=== PATIENT | female | born 1980 | race African-American/Black ===

== ENCOUNTER 2016-08-01 10:35 | Emergency (ER) | payer OTHER ==
[~2016-08-01] VITALS: Ht 167.6 cm; Wt 70.3 kg
[~2016-08-01 10:35] MED LIST: ALBUTEROL SULF8.5 GM INH; AZITHROMYCIN250 MG ORAL; BENTYL10 MG ORAL; HYDROCODON-ACE1 EA15 ORAL; IBUPROFEN600 MG ORAL; IBUPROFEN800 MG ORAL; LEVOTHYROXINE75 MCG ORAL; MACROBID100 MG ORAL; NITROFURANTOIN100 M2 ORAL; PREDNISONE20 MG ORAL; ZOFRAN ODT4 MG ORAL
[2016-08-01] MEDS ORDERED: SPIRONOLACTONE50 MG ORAL (10:45)
--- NOTE | 2016-08-01 11:09 | Emergency Room Report ---
History of Present Illness General Chief Complaint: Abdominal Pain Source: Patient Present Illness HPI Patient presents with complaints of left lower abdominal suprapubic discomfort She reports that she has had this pain off and on for several months She has had a CAT scan here and also states that she has had several ultrasounds performed She is supposed to be seeing a specialist for GI and OB for consideration of further workup The pain however last night had increased 8/10 And patient presents for pain relief denies any vomiting or diarrhea denies any recent travel denies any fevers or chills Allergies: Coded Allergies: No Known Allergies (Unverified , 09/06/13) Patient History Past Medical History: see triage record Pertinent Family History: none Last Menstrual Period: 07/15/2016 Now: No : 0 Para: 0 Reviewed Nursing Documentation: PMH: Agreed, PSxH: Agreed Nursing Documentation-PMH Hx Gastrointestinal Problems: No Review of Systems All Other Systems: negative except mentioned in HPI Physical Exam Vital Signs Date Time Temp Pulse Resp B/P Pulse Ox O2 Delivery O2 Flow Rate FiO2 08/01/16 10:38 98.4 92 16 131/78 100 Room Air Sp02 EP Interpretation: reviewed, normal General Appearance: well appearing, no apparent distress Head: normocephalic, atraumatic Eyes: bilateral eye EOMI, bilateral eye PERRL ENT: hearing grossly normal, normal pharynx, TMs + canals normal, uvula midline Neck: full range of motion, supple, no meningismus, no bony tend Respiratory: lungs clear, normal breath sounds, no rhonchi, no respiratory distress, no retraction, no accessory muscle use Cardiovascular #1: normal peripheral pulses, regular rate, rhythm, no edema, no gallop, no JVD, no murmur Gastrointestinal: normal bowel sounds, soft, no mass, no organomegaly, non- distended, no guarding, no hernia, no pulsatile mass, no rebound, other - Mild discomfort left lower quadrant suprapubic area Genitourinary: no CVA tenderness Musculoskeletal: normal inspection Neurologic: oriented x3, responsive, 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 tested, motor strength/ tone normal, sensory intact Psychiatric: mood/affect normal Skin: normal color, no rash, warm/dry, palpation normal Lymphatic: normal inspection, no adenopathy Medical Decision Making Diagnostic Impression: Primary Impression: Abdominal pain ER Course With the patient's history and examination, multiple differentials considered, including but not limited to , ectopic , ovarian torsion, gastritis, cholecystitis, pancreatitis, appendicitis Patient initially was having a pelvic ultrasound obtained as previous CAT scan has shown some questionable findings in the left lower suprapubic area patient however states that she has had Recent ultrasounds as well is set up for specialty followup with GI and [facility] and essentially is requesting pain control I did discuss with her that without ultrasound I cannot evaluate portioning of her left ovary she understands this and states that the pain is fairly intermittent And does not want to have an ultrasound repeated I did speak to [facility] they are aware of the patient's presentation and the patient has close outpatient followup Labs Test 08/01/16 10:50 Urine Color Pale yellow Urine Appearance Slightly cloudy Urine pH 6 (4.5-8.0) Urine Specific [place] 1.005 (1.005-1.035) Urine Protein Negative (NEGATIVE) Urine Glucose (UA) Negative (NEGATIVE) Urine Ketones Negative (NEGATIVE) Urine Occult Blood 1+ (NEGATIVE) Urine Nitrite Negative (NEGATIVE) Urine Bilirubin Negative (NEGATIVE) Urine Urobilinogen Normal MG/DL (0.0-1.0) Urine Leukocyte Esterase 1+ (NEGATIVE) Urine RBC 0-2 /HPF (0 - 2) Urine WBC 2-4 /HPF (0 - 2) Urine Squamous Epithelial Cells Few /LPF (NONE/OCC) Urine Bacteria Few /HPF (NONE) Urine HCG, Qualitative Negative Last Vital Signs Date Time Temp Pulse Resp B/P Pulse Ox O2 Delivery O2 Flow Rate FiO2 08/01/16 10:38 98.4 92 16 131/78 100 Room Air Status: improved Disposition: HOME, SELF-CARE Condition: Improved Scripts Acetaminophen With Codeine (T#3) (TYLENOL #3 TAB*) Y Tab 1 TAB ORAL Q8H Y for For Pain, #10 TAB Prov: JAMI MAY D.O. 08/01/16 Referrals: [facility] (PCP) Additional Instructions: Patient is provided with the discharge instructions notified to follow up with primary doctor in the next 2-3 days otherwise return to the er with any worsening symptoms. JAMI MAY D.O. Aug 01, 2016 11:09
[2016-08-01] MEDS ORDERED: Ketorolac 60mg Inj IM ONE (11:15)
[2016-08-01] MEDS ORDERED: Norco 10mg/325mg tab ORAL ONE (11:15)
[2016-08-01 11:43] LABS: APPEARANCE,URINE SLIGHTLY CLOUDY; KETONES,URINE NEGATIVE (NEGATIVE); LEUKOCYTE ESTERASE ,URINE 1+ (NEGATIVE); NITRITE,URINE NEGATIVE (NEGATIVE); PH,URINE 6 (4.5-8.0); PROTEIN,URINE NEGATIVE (NEGATIVE); UROBILINOGEN,URINE NORMAL MG/DL (0.0-1.0)
[2016-08-01] MEDS ORDERED: ACETAMINOPHEN-1 EAC1 ORAL (11:58)
[2016-08-01 12:00] VITALS: BP 120/75
[2016-08-01 12:03] LABS: BACTERIA,URINE FEW /HPF; RBC,URINE 0-2 /HPF (0 - 2); SQUAMOUS EPITHELIAL CELL,UR FEW /LPF (NONE/OCC)
[2016-08-01 12:10] VITALS: BP 120/75
== END 2016-08-01 12:04 | disposition home or self-care (01) ==
LOC: EMR 11:04
DX: R10.32 Left lower quadrant pain (principal)
CPT/HCPCS: 81003; 81025; 96372; 99283

== ENCOUNTER 2016-10-10 05:55 | Emergency (ER) | payer OTHER ==
[~2016-10-10] VITALS: Ht 167.6 cm; Wt 74.8 kg
[~2016-10-10 05:55] MED LIST changes: +ACETAMINOPHEN-1 EAC1 ORAL; +SPIRONOLACTONE50 MG ORAL
[2016-10-10 06:05] VITALS: BP 135/91
[2016-10-10] MEDS ORDERED: Ketorolac 30mg Inj IV ONE (06:30)
[2016-10-10] MEDS ORDERED: HYDROmorphone 1mg/ml Carpuject IVP ONE (06:30)
--- NOTE | 2016-10-10 06:33 | Emergency Room Report ---
History of Present Illness General Chief Complaint: Abdominal Pain Source: Patient Present Illness HPI The patient presents with lower abdominal pain. It woke her up from sleep around 3 AM. She took Motrin at home but threw it up. She did not vomit up any blood. She denies any fevers. The pain is constant and radiates somewhat to her back. She denies any dysuria. She denies change in her bowels. She states that she has a history of fibroids. She states this is same type of pain that she has when her fibroids, but it is worse. The pain is 9-1/2 out of 10. Constant pressure and aching. The Motrin did not have enough time to help. She's had CAT scan here and previous ultrasounds. She denies any sore throat, cough, chest pain, headache or dizziness. Denies skin rashes. LNMP normal 09/18. Allergies: Coded Allergies: No Known Allergies (Unverified , 09/06/13) Patient History Past Medical History: see triage record Social History: Reports: smoking Social History Narrative with sig other Last Menstrual Period: Reviewed Nursing Documentation: PMH: Agreed, PSxH: Agreed Nursing Documentation-PMH Hx Gastrointestinal Problems: No Review of Systems All Other Systems: negative except mentioned in HPI Physical Exam Vital Signs Date Time Temp Pulse Resp B/P Pulse Ox O2 Delivery O2 Flow Rate FiO2 10/10/16 05:57 97.9 128 16 134/94 100 Room Air Sp02 EP Interpretation: reviewed, normal General Appearance: well appearing, no apparent distress, GCS 15 Head: normocephalic Eyes: bilateral eye PERRL, bilateral eye normal inspection ENT: moist mucus membranes Neck: supple Respiratory: lungs clear, normal breath sounds Cardiovascular #1: regular rate, rhythm Cardiovascular #2: 2+ radial (R) Gastrointestinal: normal inspection, normal bowel sounds, no mass, non- distended, tenderness - suprapubic Genitourinary: no CVA tenderness Musculoskeletal: back normal, gait/station normal, normal range of motion Neurologic: alert, oriented x3, grossly normal Psychiatric: mood/affect normal Skin: normal inspection, warm/dry, other - tattoos Medical Decision Making Diagnostic Impression: Primary Impression: Abdominal pain Qualified Codes: R10.30 - Lower abdominal pain, unspecified Additional Impression: Fibroid Qualified Codes: D25.9 - Leiomyoma of uterus, unspecified ER Course Patient presents with suprapubic pain. She claims this is her fibroids. The pain she rates is significant. Differential includes fibroids, urinary tract infection, diverticulitis most others. Evaluation will be with labs. Based on exam x-rays not indicated. Initially treated with IV hydration, Zofran and Dilaudid with Toradol. Imaging not indicated based on exam and history. Labs unremarkable. Improved with treatment. Discussed need for adolescent specialist consultation and need for referral from PMD (Dae). Patient stable for outpatient observation and treatment. Laboratory Tests Test 10/10/16 05:20 10/10/16 06:40 Urine Color Pale yellow Urine Appearance Clear Urine pH 5 (4.5-8.0) Urine Specific [place] 1.015 (1.005-1.035) Urine Protein Negative (NEGATIVE) Urine Glucose (UA) Negative (NEGATIVE) Urine Ketones Negative (NEGATIVE) Urine Occult Blood 3+ (NEGATIVE) H Urine Nitrite Negative (NEGATIVE) Urine Bilirubin Negative (NEGATIVE) Urine Urobilinogen Normal MG/DL (0.0-1.0) Urine Leukocyte Esterase 1+ (NEGATIVE) H Urine RBC 5-10 /HPF (0 - 2) H Urine WBC 2-4 /HPF (0 - 2) Urine Squamous Epithelial Cells Few /LPF (NONE/OCC) Urine Bacteria Few /HPF (NONE) Urine HCG, Qualitative Negative White Blood Count 9.1 K/UL (4.8-10.8) Red Blood Count 4.51 M/UL (4.20-5.40) Hemoglobin 12.9 G/DL (12.0-16.0) Hematocrit 40.2 % (37.0-47.0) Mean Corpuscular Volume 89 FL (80-99) Mean Corpuscular Hemoglobin 28.6 PG (27.0-31.0) Mean Corpuscular Hemoglobin Concent 32.0 G/DL (32.0-36.0) Red Cell Distribution Width 12.2 % (11.6-14.8) Platelet Count 237 K/UL (150-450) Mean Platelet Volume 8.6 FL (6.5-10.1) Neutrophils (%) (Auto) 66.3 % (45.0-75.0) Lymphocytes (%) (Auto) 22.9 % (20.0-45.0) Monocytes (%) (Auto) 7.9 % (1.0-10.0) Eosinophils (%) (Auto) 1.2 % (0.0-3.0) Basophils (%) (Auto) 1.7 % (0.0-2.0) Sodium Level 133 mEQ/L (135-145) L Potassium Level 3.5 mEQ/L (3.4-4.9) Chloride Level 92 mEQ/L (98-107) L Carbon Dioxide Level 25 mEQ/L (20-30) Anion Gap 16 (5-15) H Blood Urea Nitrogen 9 mg/dL (7-23) Creatinine 0.8 mg/dL (0.5-0.9) Estimate Glomerular Filtration Rate > 60 mL/min (>60) Glucose Level 116 mg/dL (74-106) H Calcium Level 10.0 mg/dL (8.6-10.2) Total Bilirubin 0.2 mg/dL (0.0-1.2) Aspartate Amino Transferase (AST) 16 U/L (5-40) Alanine Aminotransferase (ALT) 8 U/L (3-33) Alkaline Phosphatase 55 U/L (35-104) Total Protein 8.3 g/dL (6.6-8.7) Albumin 4.4 g/dL (3.5-5.2) Globulin 3.9 g/dL Albumin/Globulin Ratio 1.1 (1.0-2.7) Lipase 25 U/L (< 60) Last Vital Signs Date Time Temp Pulse Resp B/P Pulse Ox O2 Delivery O2 Flow Rate FiO2 10/10/16 08:26 97.9 87 47 125/77 100 Room Air Status: improved Disposition: HOME, SELF-CARE Condition: Improved Scripts Ondansetron Odt* (ZOFRAN ODT*) 4 Mg Tab.rapdis 4 MG ORAL Q8HR Y for Nausea & Vomiting, #6 TAB 0 Refills Prov: Jose Vasques M.D. 10/10/16 Hydrocodone Bit/Acetaminophen 5-325* (NORCO 5-325*) 1 Each Tablet 1 TAB ORAL Q6H Y for For Pain, #10 TAB 0 Refills Prov: Jose Vasques M.D. 10/10/16 Jose Vasques M.D. Oct 10, 2016 06:33
[2016-10-10 07:01] LABS: APPEARANCE,URINE CLEAR; KETONES,URINE NEGATIVE (NEGATIVE); LEUKOCYTE ESTERASE ,URINE 1+ (NEGATIVE); NITRITE,URINE NEGATIVE (NEGATIVE); PH,URINE 5 (4.5-8.0); PROTEIN,URINE NEGATIVE (NEGATIVE); UROBILINOGEN,URINE NORMAL MG/DL (0.0-1.0)
[2016-10-10 07:12] LABS: BACTERIA,URINE FEW /HPF; SQUAMOUS EPITHELIAL CELL,UR FEW /LPF (NONE/OCC)
[2016-10-10 07:20] LABS: ALANINE AMINOTRANSFERASE 8 U/L (3-33); ALBUMIN/GLOBULIN RATIO 1.1 (1.0-2.7); ANION GAP 16 (5-15); ASPARTATE AMINO TRANSFERASE 16 U/L (5-40); BASOPHILS % (AUTO) 1.7 % (0.0-2.0); CARBON DIOXIDE 25 mEQ/L (20-30); CHLORIDE 92 mEQ/L (98-107); CREATININE 0.8 mg/dL (0.5-0.9); EOSINOPHILS % (AUTO) 1.2 % (0.0-3.0); GLOMERULAR FILTRATION RATE > 60 mL/min (>60); HEMOLYSIS 7; LIPASE 25 U/L (< 60); LYMPHOCYTES % (AUTO) 22.9 % (20.0-45.0); MEAN CORPUSCULAR HEMOGLOBIN 28.6 PG (27.0-31.0); MEAN CORPUSCULAR VOLUME 89 FL (80-99); MEAN PLATELET VOLUME 8.6 FL (6.5-10.1); MONOCYTES % (AUTO) 7.9 % (1.0-10.0); NEUTROPHILS % (AUTO) 66.3 % (45.0-75.0); PLATELET COUNT 237 K/UL (150-450); POTASSIUM 3.5 mEQ/L (3.4-4.9); RED BLOOD COUNT 4.51 M/UL (4.20-5.40); RED CELL DISTRIBUTION WIDTH 12.2 % (11.6-14.8); SODIUM 133 mEQ/L (135-145); TOTAL PROTEIN 8.3 g/dL (6.6-8.7); WHITE BLOOD COUNT 9.1 K/UL (4.8-10.8)
[2016-10-10] MEDS ORDERED: NORCO 5-325 TA1 EACH ORAL (07:59)
[2016-10-10] MEDS ORDERED: ZOFRAN ODT4 MG ORAL (07:59)
[2016-10-10 08:19] VITALS: BP 125/77
[2016-10-10 08:26] VITALS: BP 125/77
== END 2016-10-10 08:27 | disposition home or self-care (01) ==
LOC: EMR 06:10
DX: D25.9 Leiomyoma of uterus, unspecified (principal)
CPT/HCPCS: 36415; 80053; 81003; 81025; 83690; 85025; 96374; 96375; 99284; J1170; J1885; J2405

== ENCOUNTER 2016-12-31 21:00 | Emergency (ER) | payer OTHER ==
[~2016-12-31] VITALS: Ht 167.6 cm; Wt 75.0 kg
[~2016-12-31 21:00] MED LIST changes: +NORCO 5-325 TA1 EACH ORAL
--- NOTE | 2016-12-31 21:06 | Emergency Room Report ---
History of Present Illness General Chief Complaint: To Be Triaged Present Illness HPI 36YOF walk-in with 2-3 days of "my fibroids acting up" causing lower abd pain. Feels like "usual fibroid pain." No vaginal bleeding, nausea/vomtiing, urinary complaints, diarrhea, fever/chills. Took Ibuprofen 200mg once yesterday with marginal relief. EMR indicates multiple visits to ED for same, as recent as September 2016. Specific request made for dilaudid. Allergies: Coded Allergies: No Known Allergies (Unverified , 12/31/16) Patient History Past Medical History: other - Uterine fibroids Past Surgical History: none Pertinent Family History: none Social History: Denies: alcohol use, drug use, smoking Now: No Immunizations: UTD Reviewed Nursing Documentation: PMH: Agreed, PSxH: Agreed Nursing Documentation-PMH Hx Gastrointestinal Problems: No Review of Systems All Other Systems: negative except mentioned in HPI Physical Exam Sp02 EP Interpretation: reviewed, normal General Appearance: normal inspection, well appearing, no apparent distress, alert, GCS 15, non-toxic Head: normocephalic, atraumatic Eyes: bilateral eye EOMI, bilateral eye PERRL ENT: normal ENT inspection, hearing grossly normal, normal voice Neck: normal inspection, full range of motion, supple, no bony tend Respiratory: normal inspection, lungs clear, normal breath sounds, no respiratory distress, no retraction, no wheezing Cardiovascular #1: regular rate, rhythm, no edema Gastrointestinal: normal inspection, normal bowel sounds, non tender, soft, no guarding, no hernia Genitourinary: no CVA tenderness Musculoskeletal: normal inspection, back normal, normal range of motion, Barbi' s Sign negative Neurologic: normal inspection, alert, oriented x3, responsive, 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 Does not warrant sono in ED as no vaginal bleeding and low suspicion for degenerative fibroid or other acute pelvic pathology at this time. Status: improved Disposition: HOME, SELF-CARE Scripts Tramadol Hcl* (ULTRAM*) 50 Mg Tablet 50 MG ORAL BID Y for For Pain for 7 Days, #14 TAB 0 Refills Prov: JEANNIE OLIVEIRA M.D. 12/31/16 JEANNIE OLIVEIRA M.D. Dec 31, 2016 21:06
[2016-12-31 21:15] VITALS: BP 144/91
[2016-12-31 21:43] LABS: APPEARANCE,URINE CLEAR; KETONES,URINE NEGATIVE (NEGATIVE); LEUKOCYTE ESTERASE ,URINE NEGATIVE (NEGATIVE); NITRITE,URINE NEGATIVE (NEGATIVE); PH,URINE 6 (4.5-8.0); PROTEIN,URINE NEGATIVE (NEGATIVE); UROBILINOGEN,URINE NORMAL MG/DL (0.0-1.0)
[2016-12-31] MEDS ORDERED: TRAMADOL HCL50 MG ORAL (21:44)
[2016-12-31] MEDS ORDERED: Ketorolac 60mg Inj IM ONE (21:45)
[2016-12-31 22:00] VITALS: BP 137/79
== END 2016-12-31 22:00 | disposition home or self-care (01) ==
LOC: EMR 21:35
DX: R10.84 Generalized abdominal pain (principal)
CPT/HCPCS: 81003; 81025; 96372; 99283

== ENCOUNTER 2017-01-19 06:11 | Emergency (ER) | payer OTHER ==
[~2017-01-19] VITALS: Ht 167.6 cm; Wt 72.6 kg
[~2017-01-19 06:11] MED LIST changes: +TRAMADOL HCL50 MG ORAL
[2017-01-19 06:28] VITALS: BP 118/82
[2017-01-19 06:52] LABS: APPEARANCE,URINE CLEAR; KETONES,URINE NEGATIVE (NEGATIVE); LEUKOCYTE ESTERASE ,URINE 2+ (NEGATIVE); NITRITE,URINE NEGATIVE (NEGATIVE); PH,URINE 7 (4.5-8.0); PROTEIN,URINE NEGATIVE (NEGATIVE); UROBILINOGEN,URINE NORMAL MG/DL (0.0-1.0)
[2017-01-19 07:04] LABS: BACTERIA,URINE FEW /HPF; RBC,URINE 0-2 /HPF (0 - 2); SQUAMOUS EPITHELIAL CELL,UR MODERATE /LPF (NONE/OCC)
[2017-01-19] MEDS ORDERED: FLUCONAZOLE150 MG ORAL (07:17)
[2017-01-19] MEDS ORDERED: TRAMADOL HCL50 MG ORAL (07:17)
[2017-01-19 07:22] VITALS: BP 118/82
--- NOTE | 2017-01-19 07:58 | Emergency Room Report ---
History of Present Illness General Chief Complaint: Female Urogenital Problems Source: Patient Present Illness HPI 36-year-old female presents ED for evaluation. States since last week she has had white curdish discharge and vaginal itching. Patient states that she used Monistat [id number] twice but states the itching persists. Denies any pain. Denies any dysuria or hematuria. Denies any vaginal bleeding. Patient also states that she has history of fibroids and has run out of her pain medication. Normally takes tramadol when the pain gets bad. Denies any pain at this time. No other aggravating or relieving factors. Denies any other associated symptoms Allergies: Coded Allergies: No Known Allergies (Unverified , 12/31/16) Patient History Past Medical History: none Past Surgical History: none Pertinent Family History: none Social History: Denies: alcohol use, drug use, smoking Last Menstrual Period: December 29, 2016 Now: No : 0 Para: 0 Immunizations: UTD Reviewed Nursing Documentation: PMH: Agreed, PSxH: Agreed Nursing Documentation-PMH Past Medical History: No History, Except For Hx Gastrointestinal Problems: No Review of Systems All Other Systems: negative except mentioned in HPI Physical Exam Vital Signs Date Time Temp Pulse Resp B/P Pulse Ox O2 Delivery O2 Flow Rate FiO2 01/19/17 06:20 98.1 73 21 118/82 97 Room Air Sp02 EP Interpretation: reviewed, normal General Appearance: no apparent distress, alert, GCS 15, non-toxic Head: normocephalic Eyes: bilateral eye PERRL, bilateral eye normal inspection ENT: normal ENT inspection Neck: full range of motion Respiratory: normal inspection Cardiovascular #1: normal inspection Gastrointestinal: normal bowel sounds, non tender, soft, non-distended, no guarding, no rebound Rectal: deferred Genitourinary: no CVA tenderness Musculoskeletal: normal inspection Neurologic: alert, oriented x3, responsive, motor strength/tone normal, sensory intact, speech normal Psychiatric: normal inspection Skin: normal inspection Lymphatic: normal inspection Medical Decision Making Diagnostic Impression: Primary Impression: Candidiasis of vagina Additional Impression: Fibroid Qualified Codes: D25.9 - Leiomyoma of uterus, unspecified ER Course Hospital Course 36-year-old female presents to ED complaining of vaginal itchign, discharge. h/ o fibroids Differential diagnoses include: UTI, cystitis, pyelonephritis Clinical course Patient placed on stretcher. After initial history and physical I ordered UA, urine . UA noted to be unremarkable. We'll treat clinically for yeast infection. Provide patient with short course of tramadol for her fibroids pain Diagnosis - candidiasis of vagina, fibroid Stable and discharged home with prescriptions for Rx diflucan, tramadol. Instructed to followup with PMD. Return to ED if symptoms recur or worsen Labs Test 01/19/17 06:31 Urine Color Pale yellow Urine Appearance Clear Urine pH 7 (4.5-8.0) Urine Specific [place] 1.010 (1.005-1.035) Urine Protein Negative (NEGATIVE) Urine Glucose (UA) Negative (NEGATIVE) Urine Ketones Negative (NEGATIVE) Urine Occult Blood 1+ (NEGATIVE) Urine Nitrite Negative (NEGATIVE) Urine Bilirubin Negative (NEGATIVE) Urine Urobilinogen Normal MG/DL (0.0-1.0) Urine Leukocyte Esterase 2+ (NEGATIVE) Urine RBC 0-2 /HPF (0 - 2) Urine WBC 2-4 /HPF (0 - 2) Urine Squamous Epithelial Cells Moderate /LPF (NONE/OCC) Urine Bacteria Few /HPF (NONE) Urine HCG, Qualitative Negative Last Vital Signs Date Time Temp Pulse Resp B/P Pulse Ox O2 Delivery O2 Flow Rate FiO2 01/19/17 07:22 98.1 21 118/82 97 Room Air 01/19/17 06:20 73 Status: improved Disposition: HOME, SELF-CARE Condition: Stable Scripts Tramadol Hcl* (ULTRAM*) 50 Mg Tablet 50 MG ORAL Q6H Y for For Pain, #20 TAB 0 Refills Prov: JEREMY KANG M.D. 01/19/17 Fluconazole (FLUCONAZOLE) 150 Mg Tablet 150 MG ORAL DAILY, #2 TAB Prov: JEREMY KANG M.D. 01/19/17 Referrals: [facility] (PCP) Patient Instructions: Vaginal Yeast Infection, Adult JEREMY KANG M.D. Jan 19, 2017 07:58
== END 2017-01-19 07:28 | disposition home or self-care (01) ==
LOC: EMR 06:50
DX: B37.3 Candidiasis of vulva and vagina (principal); D25.9 Leiomyoma of uterus, unspecified
CPT/HCPCS: 81003; 81025; 99284

== ENCOUNTER 2017-03-28 16:57 | Emergency (ER) | payer OTHER ==
[~2017-03-28] VITALS: Ht 167.6 cm; Wt 74.8 kg
[~2017-03-28 16:57] MED LIST changes: +FLUCONAZOLE150 MG ORAL
[2017-03-28 17:10] VITALS: BP 135/80
[2017-03-28 17:49] LABS: APPEARANCE,URINE CLEAR; KETONES,URINE NEGATIVE (NEGATIVE); LEUKOCYTE ESTERASE ,URINE 1+ (NEGATIVE); NITRITE,URINE NEGATIVE (NEGATIVE); PH,URINE 5 (4.5-8.0); PROTEIN,URINE NEGATIVE (NEGATIVE); UROBILINOGEN,URINE NORMAL MG/DL (0.0-1.0)
[2017-03-28 17:54] LABS: BACTERIA,URINE FEW /HPF; RBC,URINE 0-2 /HPF (0 - 2); SQUAMOUS EPITHELIAL CELL,UR FEW /LPF (NONE/OCC); WBC,URINE 0-2 /HPF (0 - 2)
[2017-03-28] MEDS ORDERED: Ketorolac 60mg Inj IM ONE (18:00)
[2017-03-28] MEDS ORDERED: IBUPROFEN600 MG ORAL (18:13)
[2017-03-28] MEDS ORDERED: TRAMADOL HCL50 MG ORAL (18:13)
[2017-03-28 18:15] VITALS: BP 129/78
--- NOTE | 2017-03-28 18:26 | Emergency Room Report ---
History of Present Illness General Chief Complaint: Abdominal Pain Source: Patient Present Illness HPI The patient is a 36-year-old female with a history of fibroids presenting for left lower abdominal pain for the past 2 days. Pain is 9/10 dull ache and does not radiate from the area. She states that this feels identical to past presentations of abdominal pain due to to fibroids. Last abdominal ultrasound was 3 months prior which showed "large left sided fibroid". She does admit to nausea but denies vomiting. Last normal menstrual period was one month prior. She denies any other symptoms including F, chills, SOB, CP, diarrhea, constipation, dizziness, vaginal discharge, dysuria Allergies: Coded Allergies: No Known Allergies (Unverified , 12/31/16) Patient History Past Medical History: see triage record Pertinent Family History: none Last Menstrual Period: 02/28/2017 Now: No Reviewed Nursing Documentation: PMH: Agreed, PSxH: Agreed Nursing Documentation-PMH Hx Gastrointestinal Problems: No Review of Systems All Other Systems: negative except mentioned in HPI Physical Exam Vital Signs Date Time Temp Pulse Resp B/P (MAP) Pulse Ox O2 Delivery O2 Flow Rate FiO2 03/28/17 17:10 98.1 71 18 135/80 100 Room Air Sp02 EP Interpretation: reviewed, normal General Appearance: no apparent distress, alert, GCS 15, non-toxic Head: normocephalic, atraumatic Eyes: bilateral eye normal inspection, bilateral eye PERRL ENT: hearing grossly normal, normal pharynx, no angioedema, normal voice Neck: full range of motion, supple/symm/no masses Respiratory: chest non-tender, lungs clear, normal breath sounds, speaking full sentences Gastrointestinal: normal bowel sounds, soft, non-distended, no guarding, no rebound, tenderness - TTP over the LLQ Genitourinary: normal inspection, no CVA tenderness Musculoskeletal: back normal, gait/station normal, normal range of motion, non- tender Neurologic: alert, oriented x3, responsive, motor strength/tone normal, sensory intact, speech normal Psychiatric: judgement/insight normal, memory normal, mood/affect normal, no suicidal/homicidal ideation Skin: normal color, no rash, warm/dry, well hydrated Lymphatic: no adenopathy Medical Decision Making PA Attestation Dr. Moe is my supervising physician. Patient management was discussed with my supervising physician Diagnostic Impression: Primary Impression: Fibroid Qualified Codes: D25.9 - Leiomyoma of uterus, unspecified ER Course The patient is a 36-year-old female with a history of fibroids presenting for left lower abdominal pain Differential diagnoses considered include but not limited to UTI, fibroid, ovarian cyst, PID, appendicitis, among others PE: afebrile. NAD Abd is soft. Normal BS. TTP over LLQ. No CVA tenderness. UA unremarkable. Neg preg Pt given toradol in ER with relief of pain. 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 Laboratory Tests Test 03/28/17 17:25 Urine Color Pale yellow Urine Appearance Clear Urine pH 5 (4.5-8.0) Urine Specific [place] 1.010 (1.005-1.035) Urine Protein Negative (NEGATIVE) Urine Glucose (UA) Negative (NEGATIVE) Urine Ketones Negative (NEGATIVE) Urine Occult Blood 1+ (NEGATIVE) H Urine Nitrite Negative (NEGATIVE) Urine Bilirubin Negative (NEGATIVE) Urine Urobilinogen Normal MG/DL (0.0-1.0) Urine Leukocyte Esterase 1+ (NEGATIVE) H Urine RBC 0-2 /HPF (0 - 2) Urine WBC 0-2 /HPF (0 - 2) Urine Squamous Epithelial Cells Few /LPF (NONE/OCC) Urine Bacteria Few /HPF (NONE) Urine HCG, Qualitative Negative Lab Results Impression UA unremarkable. Preg: neg Last Vital Signs Date Time Temp Pulse Resp B/P (MAP) Pulse Ox O2 Delivery O2 Flow Rate FiO2 03/28/17 18:15 98.1 72 19 129/78 100 Room Air Status: improved Disposition: HOME, SELF-CARE Condition: Improved Scripts Tramadol Hcl* (ULTRAM*) 50 Mg Tablet 50 MG ORAL Q6H Y for For Pain, #8 TAB 0 Refills Prov: TERZIAN,DAGO P.A. 03/28/17 Ibuprofen* (MOTRIN*) 600 Mg Tablet 600 MG ORAL Q8H Y for For Pain, #30 TAB 0 Refills Prov: TERZIAN,DAGO P.A. 03/28/17 Referrals: [facility] (PCP) Patient Instructions: Abdominal Pain, Adult, Uterine Fibroids Additional Instructions: I discussed my findings with the patient. All questions and concerns have been answered. Treatment and medication compliance have been addressed. I advised the patient that they need to follow up with PMD in 3-5 days. Return to ED if symptoms worsen, new symptoms arise, or if needed for any reason. Patient verbalized understanding of discharge instructions. DAGO VO Mar 28, 2017 18:26
== END 2017-03-28 18:15 | disposition home or self-care (01) ==
LOC: EMR 17:15
DX: D25.9 Leiomyoma of uterus, unspecified (principal)
CPT/HCPCS: 81003; 81025; 96372; 99284

== ENCOUNTER 2018-06-07 13:59 | Emergency (ER) | payer OTHER ==
[~2018-06-07] VITALS: Ht 167.6 cm; Wt 78.9 kg
[2018-06-07 14:10] VITALS: BP 135/90
[2018-06-07] MEDS ORDERED: Ketorolac 30mg Inj IV ONE (14:30)
[2018-06-07 14:41] LABS: APPEARANCE,URINE SLIGHTLY CLOUDY; BILIRUBIN, URINE NEGATIVE (NEGATIVE); COLOR,URINE PALE YELLOW; GLUCOSE, URINE (UA) NEGATIVE (NEGATIVE); KETONES,URINE NEGATIVE (NEGATIVE); LEUKOCYTE ESTERASE ,URINE 1+ (NEGATIVE); NITRITE,URINE NEGATIVE (NEGATIVE); PH,URINE 5 (4.5-8.0); PROTEIN,URINE NEGATIVE (NEGATIVE); UROBILINOGEN,URINE NORMAL MG/DL (0.0-1.0)
[2018-06-07 14:42] LABS: EOSINOPHILS % (AUTO) 0.4 % (0.0-3.0); HEMATOCRIT 39.2 % (37.0-47.0); HEMOGLOBIN 12.6 G/DL (12.0-16.0); LYMPHOCYTES % (AUTO) 12.7 % (20.0-45.0); MEAN CORPUSCULAR VOLUME 86 FL (80-99); MONOCYTES % (AUTO) 6.5 % (1.0-10.0); NEUTROPHILS % (AUTO) 79.4 % (45.0-75.0); PLATELET COUNT 243 K/UL (150-450); RED BLOOD COUNT 4.55 M/UL (4.20-5.40); RED CELL DISTRIBUTION WIDTH 12.4 % (11.6-14.8); WHITE BLOOD COUNT 9.2 K/UL (4.8-10.8)
[2018-06-07 14:50] LABS: ANION GAP 8 mmol/L (5-15); BLOOD UREA NITROGEN 5 mg/dL (7-18); CALCIUM 9.5 MG/DL (8.5-10.1); CARBON DIOXIDE 26 MMOL/L (21-32); CHLORIDE 102 MMOL/L (98-107); CREATININE 0.9 MG/DL (0.55-1.30); POTASSIUM 3.7 MMOL/L (3.5-5.1); SODIUM 136 MMOL/L (136-145)
[2018-06-07 14:55] LABS: ALANINE AMINOTRANSFERASE 20 U/L (12-78); ALBUMIN 3.9 G/DL (3.4-5.0); ALBUMIN/GLOBULIN RATIO 0.7 (1.0-2.7); ALKALINE PHOSPHATASE 63 U/L (46-116); ASPARTATE AMINO TRANSFERASE 16 U/L (15-37); BILIRUBIN,TOTAL 0.3 MG/DL (0.2-1.0)
[2018-06-07] MEDS ORDERED: TRAMADOL HCL50 MG ORAL (15:10)
[2018-06-07] MEDS ORDERED: IBUPROFEN600 MG ORAL (15:10)
[2018-06-07] MEDS ORDERED: Morphine Sulfate 4mg/ml Inj (IV/IM USE ONLY) IVP ONE (15:15)
[2018-06-07 15:29] VITALS: BP 128/85
[2018-06-07 15:30] VITALS: BP 128/85
--- NOTE | 2018-06-07 16:10 | Emergency Room Report ---
History of Present Illness General Chief Complaint: Abdominal Pain Source: Patient Present Illness HPI 38-year-old male presents ED for evaluation. Complaining of pain to left lower pelvis starting today. 10 out of 10, sharp, nonradiating. History of fibroids. States this pain feels like her fibroids. Denies bleeding. States that she is scheduled to follow-up with her KEY ACCOUNT REPRESENTATIVE regarding further care. Denies nausea or vomiting. Denies fevers or chills. No other aggravating relieving factors. Denies any other associated symptoms Allergies: Coded Allergies: No Known Allergies (Unverified , 12/31/16) Patient History Past Medical History: none Past Surgical History: none Pertinent Family History: none Social History: Denies: smoking, alcohol use, drug use Last Menstrual Period: MAY 29, 2018 Now: No Immunizations: UTD Reviewed Nursing Documentation: PMH: Agreed; PSxH: Agreed Nursing Documentation-PMH Past Medical History: No History, Except For Hx Cardiac Problems: No - THYROID PROBLEMS Hx Gastrointestinal Problems: No Review of Systems All Other Systems: negative except mentioned in HPI Physical Exam Vital Signs Date Time Temp Pulse Resp B/P (MAP) Pulse Ox O2 Delivery O2 Flow Rate FiO2 06/07/18 14:03 98.1 97 18 135/90 100 Room Air Sp02 EP Interpretation: reviewed, normal General Appearance: no apparent distress, alert, GCS 15, non-toxic Head: normocephalic, atraumatic Eyes: bilateral eye normal inspection, bilateral eye PERRL ENT: hearing grossly normal, normal pharynx, no angioedema, normal voice Neck: full range of motion, supple/symm/no masses Respiratory: chest non-tender, lungs clear, normal breath sounds, speaking full sentences Cardiovascular #1: regular rate, rhythm, no edema Cardiovascular #2: 2+ carotid (R), 2+ carotid (L), 2+ radial (R), 2+ radial (L) , 2+ dorsalis pedis (R), 2+ dorsalis pedis (L) Gastrointestinal: normal bowel sounds, soft, non-distended, no guarding, no rebound, tenderness - LLQ Rectal: deferred Genitourinary: normal inspection, no CVA tenderness Musculoskeletal: back normal, gait/station normal, normal range of motion, non- tender Neurologic: alert, oriented x3, responsive, motor strength/tone normal, sensory intact, speech normal Psychiatric: judgement/insight normal, memory normal, mood/affect normal, no suicidal/homicidal ideation Reflexes: 3+ bicep (R), 3+ bicep (L), 3+ tricep (R), 3+ tricep (L), 3+ knee (R) , 3+ knee (L) Skin: normal color, no rash, warm/dry, well hydrated Lymphatic: no adenopathy Medical Decision Making Diagnostic Impression: Primary Impression: Fibroid Qualified Codes: D25.9 - Leiomyoma of uterus, unspecified ER Course Hospital Course 38 yo F presents to ED c/o lower abd pain. h/o fibroids Differential diagnoses include: gastrits, gastroenterits, ectopic , ovarian torsion/cyst, UTI Clinical course Patient placed on stretcher in ED. After initial history and physical I ordered labs, pain meds Labs-no leukocytosis, hb/hct stable electrolytes okay, beta hCG negative, UA negative Patient has had multiple ultrasounds in the past confirming findings. I see no reason to repeat imaging at this time. Patient agrees. Patient states that she will follow-up with her KEY ACCOUNT REPRESENTATIVE. States pain is improved. Diagnosis - fibroids Stable and discharged to home with Rx MOtrin, Tramadol. 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 Return to ED if symptoms recur or worsen Labs Test 06/07/18 14:29 White Blood Count 9.2 K/UL (4.8-10.8) Red Blood Count 4.55 M/UL (4.20-5.40) Hemoglobin 12.6 G/DL (12.0-16.0) Hematocrit 39.2 % (37.0-47.0) Mean Corpuscular Volume 86 FL (80-99) Mean Corpuscular Hemoglobin 27.6 PG (27.0-31.0) Mean Corpuscular Hemoglobin Concent 32.1 G/DL (32.0-36.0) Red Cell Distribution Width 12.4 % (11.6-14.8) Platelet Count 243 K/UL (150-450) Mean Platelet Volume 8.2 FL (6.5-10.1) Neutrophils (%) (Auto) 79.4 % (45.0-75.0) Lymphocytes (%) (Auto) 12.7 % (20.0-45.0) Monocytes (%) (Auto) 6.5 % (1.0-10.0) Eosinophils (%) (Auto) 0.4 % (0.0-3.0) Basophils (%) (Auto) 1.0 % (0.0-2.0) Urine Color Pale yellow Urine Appearance Slightly cloudy Urine pH 5 (4.5-8.0) Urine Specific [place] 1.020 (1.005-1.035) Urine Protein Negative (NEGATIVE) Urine Glucose (UA) Negative (NEGATIVE) Urine Ketones Negative (NEGATIVE) Urine Blood 2+ (NEGATIVE) Urine Nitrite Negative (NEGATIVE) Urine Bilirubin Negative (NEGATIVE) Urine Urobilinogen Normal MG/DL (0.0-1.0) Urine Leukocyte Esterase 1+ (NEGATIVE) Urine RBC 2-4 /HPF (0 - 2) Urine WBC 2-4 /HPF (0 - 2) Urine Squamous Epithelial Cells Few /LPF (NONE/OCC) Urine Bacteria Few /HPF (NONE) Urine HCG, Qualitative Negative (NEGATIVE) Sodium Level 136 MMOL/L (136-145) Potassium Level 3.7 MMOL/L (3.5-5.1) Chloride Level 102 MMOL/L (98-107) Carbon Dioxide Level 26 MMOL/L (21-32) Anion Gap 8 mmol/L (5-15) Blood Urea Nitrogen 5 mg/dL (7-18) Creatinine 0.9 MG/DL (0.55-1.30) Estimat Glomerular Filtration Rate > 60 mL/min (>60) Glucose Level 105 MG/DL (74-106) Calcium Level 9.5 MG/DL (8.5-10.1) Total Bilirubin 0.3 MG/DL (0.2-1.0) Aspartate Amino Transf (AST/SGOT) 16 U/L (15-37) Alanine Aminotransferase (ALT/SGPT) 20 U/L (12-78) Alkaline Phosphatase 63 U/L (46-116) Total Protein 9.2 G/DL (6.4-8.2) Albumin 3.9 G/DL (3.4-5.0) Globulin 5.3 g/dL Albumin/Globulin Ratio 0.7 (1.0-2.7) Last Vital Signs Date Time Temp Pulse Resp B/P (MAP) Pulse Ox O2 Delivery O2 Flow Rate FiO2 06/07/18 14:10 92 18 Room Air 06/07/18 14:10 98.1 135/90 100 Status: improved Disposition: HOME, SELF-CARE Condition: Stable Scripts Ibuprofen* (MOTRIN*) 600 Mg Tablet 600 MG ORAL Q8H PRN for For Pain, #30 TAB 0 Refills Prov: Ollie Wilson MD 06/07/18 Tramadol Hcl* (ULTRAM*) 50 Mg Tablet 50 MG ORAL Q6H PRN for For Pain, #30 TAB 0 Refills Prov: Ollie Wilson MD 06/07/18 Patient Instructions: Uterine Fibroids, [id number] Ollie Wilson MD Jun 07, 2018 16:10
== END 2018-06-07 15:30 | disposition home or self-care (01) ==
LOC: EMR 15:30
DX: D25.9 Leiomyoma of uterus, unspecified (principal)
CPT/HCPCS: 36415; 80053; 81003; 81025; 85025; 96374; 96375; 99283; J1885; J2270

== ENCOUNTER 2019-05-04 22:01 | Emergency (ER) | payer OTHER ==
[~2019-05-04] VITALS: Ht 167.6 cm; Wt 77.1 kg
--- NOTE | 2019-05-04 22:17 | NUR ---
ED Nurse Note: Pt walked in c/o fibroid pain since 190. Pt stated 10/10 sharp abd and rectal pain; per pt, pt is about to have her menstrual cycle and is one of the triggers for a flair up. ao4 nad vss urine collected; sent down to lab.
--- NOTE | 2019-05-04 22:23 | Emergency Room Report ---
History of Present Illness General Chief Complaint: Female Urogenital Problems Source: Patient Present Illness HPI Disclaimer: Please note that this report is being documented using DRAGON technology. This can lead to erroneous entry secondary to incorrect interpretation by the dictating instrument. HPI: 39-year-old female history of uterine fibroids presents for evaluation of abdominal pain. Symptoms began yesterday but acutely worsened over the past few hours. She notes a left suprapubic pain that is cramping and nonradiating. Had one episode of emesis which she attributes to pain. She has had no further nausea. Denies fever, chills, diarrhea. Denies vaginal bleeding, vaginal discharge. She follows up with her SAGGER MAKER for known uterine fibroids and planning for ablation and surgical resection. She has not seen her OB in approximately 6 months. Seen in the emergency department multiple imaging studies confirming fibroids in the past. He states that is her exact pain and nothing new. Denies any other symptoms at this time. PMH: Fibroids, hypothyroidism PSH: Denies Allergies: Denies Social Hx: Denies drug or alcohol use Allergies: Coded Allergies: No Known Allergies (Unverified , 12/31/16) Patient History Last Menstrual Period: 03/2019 Now: No Nursing Documentation-PMH Hx Cardiac Problems: No - hypotyhyroid Hx Gastrointestinal Problems: No Review of Systems All Other Systems: negative except mentioned in HPI Physical Exam Vital Signs Date Time Temp Pulse Resp B/P (MAP) Pulse Ox O2 Delivery O2 Flow Rate FiO2 05/04/19 22:03 98.1 84 18 138/91 (107) 98 Room Air General: Awake and alert, appears uncomfortable HEENT: NC/AT. EOMI. Cardiovascular: RRR. S1 and S2 normal. No murmur appreciated Resp: Normal work of breathing. No cough, wheezing or crackles appreciated Abdomen: Abdomen is soft, nondistended. Tenderness over the suprapubic region and left lower quadrant. No mass, no rebound Skin: Intact. No abrasions, laceration or rash over the exposed skin MSK: Normal tone and bulk. Moving all extremities. No obvious deformity. Neuro: Awake and alert. Mentating appropriately. Medical Decision Making Diagnostic Impression: Primary Impression: Pelvic pain Additional Impression: Leiomyoma ER Course 39-year-old female with history of known uterine fibroids presents for evaluation of lower pelvic pain without vaginal bleeding. Differential includes but is not limited to symptomatic fibroids, ovarian cyst, ovarian torsion, cystitis, pyelonephritis, gastroenteritis, muscle cramping, constipation, appendicitis, pancreatitis, nephrolithiasis. Patient states this her exact fibroid pain and that she has had this multiple times in the past. We will start metabolic and infectious work-up on the patient but given her history do not believe she requires emergent imaging at this time until we can reevaluate after symptomatic control. We will start IV fluids, antiemetics, pain medication and reevaluate the patient after labs. Laboratory Tests Test 05/04/19 22:12 05/04/19 22:30 Urine Color Pale yellow Urine Appearance Clear Urine pH 5 (4.5-8.0) Urine Specific [place] 1.015 (1.005-1.035) Urine Protein Negative (NEGATIVE) Urine Glucose (UA) Negative (NEGATIVE) Urine Ketones Negative (NEGATIVE) Urine Blood 2+ (NEGATIVE) H Urine Nitrite Negative (NEGATIVE) Urine Bilirubin Negative (NEGATIVE) Urine Urobilinogen Normal MG/DL (0.0-1.0) Urine Leukocyte Esterase Negative (NEGATIVE) Urine RBC 2-4 /HPF (0 - 2) H Urine WBC 0-2 /HPF (0 - 2) Urine Squamous Epithelial Cells Few /LPF (NONE/OCC) Urine Bacteria Few /HPF (NONE) Urine HCG, Qualitative Negative (NEGATIVE) White Blood Count 8.7 K/UL (4.8-10.8) Red Blood Count 4.31 M/UL (4.20-5.40) Hemoglobin 12.3 G/DL (12.0-16.0) Hematocrit 38.2 % (37.0-47.0) Mean Corpuscular Volume 89 FL (80-99) Mean Corpuscular Hemoglobin 28.5 PG (27.0-31.0) Mean Corpuscular Hemoglobin Concent 32.2 G/DL (32.0-36.0) Red Cell Distribution Width 11.4 % (11.6-14.8) L Platelet Count 211 K/UL (150-450) Mean Platelet Volume 7.5 FL (6.5-10.1) Neutrophils (%) (Auto) 65.9 % (45.0-75.0) Lymphocytes (%) (Auto) 23.3 % (20.0-45.0) Monocytes (%) (Auto) 8.2 % (1.0-10.0) Eosinophils (%) (Auto) 1.4 % (0.0-3.0) Basophils (%) (Auto) 1.2 % (0.0-2.0) Sodium Level 138 MMOL/L (136-145) Potassium Level 3.5 MMOL/L (3.5-5.1) Chloride Level 102 MMOL/L (98-107) Carbon Dioxide Level 26 MMOL/L (21-32) Anion Gap 10 mmol/L (5-15) Blood Urea Nitrogen 5 mg/dL (7-18) L Creatinine 0.8 MG/DL (0.55-1.30) Estimate Glomerular Filtration Rate > 60 mL/min (>60) Glucose Level 109 MG/DL (74-106) H Calcium Level 9.6 MG/DL (8.5-10.1) Total Bilirubin 0.3 MG/DL (0.2-1.0) Aspartate Amino Transferase (AST) 14 U/L (15-37) L Alanine Aminotransferase (ALT) 16 U/L (12-78) Alkaline Phosphatase 64 U/L (46-116) Total Protein 8.5 G/DL (6.4-8.2) H Albumin 3.8 G/DL (3.4-5.0) Globulin 4.7 g/dL Albumin/Globulin Ratio 0.8 (1.0-2.7) L Lipase 106 U/L (73-393) Reevaluation Time: 00:57 Last Vital Signs Date Time Temp Pulse Resp B/P (MAP) Pulse Ox O2 Delivery O2 Flow Rate FiO2 05/04/19 22:03 98.1 84 18 138/91 (107) 98 Room Air Reevaluation Impression Labs have returned largely within normal limits. Patient is symptomatically much improved and is requesting discharge home to follow-up with her SAGGER MAKER. She wants to have an ablation performed and was in talks with SAGGER MAKER to schedule this. Overall, she is well-appearing with stable vital signs and I believe she is appropriate for outpatient follow-up. We discussed reasons to return to the emergency department. She understands and agrees with treatment plan. Disposition: HOME, SELF-CARE Condition: Improved Lokesh Young MD May 04, 2019 22:23
[2019-05-04] MEDS ORDERED: Morphine Sulfate 4mg/ml Inj (IV USE ONLY) IVP ONE (22:30)
[2019-05-04] MEDS ORDERED: Ketorolac 30mg Inj IV ONE (22:30)
--- NOTE | 2019-05-04 22:30 | NUR ---
ED Nurse Note: iv access established. blood collected; sent down to lab.
[2019-05-04 22:41] LABS: APPEARANCE,URINE CLEAR; BILIRUBIN, URINE NEGATIVE (NEGATIVE); COLOR,URINE PALE YELLOW; GLUCOSE, URINE (UA) NEGATIVE (NEGATIVE); KETONES,URINE NEGATIVE (NEGATIVE); LEUKOCYTE ESTERASE ,URINE NEGATIVE (NEGATIVE); NITRITE,URINE NEGATIVE (NEGATIVE); PH,URINE 5 (4.5-8.0); PROTEIN,URINE NEGATIVE (NEGATIVE); UROBILINOGEN,URINE NORMAL MG/DL (0.0-1.0)
[2019-05-04 22:43] VITALS: BP 138/91
[2019-05-04 23:03] LABS: BASOPHILS % (AUTO) 1.2 % (0.0-2.0); EOSINOPHILS % (AUTO) 1.4 % (0.0-3.0); HEMATOCRIT 38.2 % (37.0-47.0); HEMOGLOBIN 12.3 G/DL (12.0-16.0); LYMPHOCYTES % (AUTO) 23.3 % (20.0-45.0); MEAN CORPUSCULAR VOLUME 89 FL (80-99); MONOCYTES % (AUTO) 8.2 % (1.0-10.0); NEUTROPHILS % (AUTO) 65.9 % (45.0-75.0); PLATELET COUNT 211 K/UL (150-450); RED BLOOD COUNT 4.31 M/UL (4.20-5.40); RED CELL DISTRIBUTION WIDTH 11.4 % (11.6-14.8); WHITE BLOOD COUNT 8.7 K/UL (4.8-10.8)
[2019-05-04 23:15] LABS: ANION GAP 10 mmol/L (5-15); BLOOD UREA NITROGEN 5 mg/dL (7-18); CALCIUM 9.6 MG/DL (8.5-10.1); CARBON DIOXIDE 26 MMOL/L (21-32); CHLORIDE 102 MMOL/L (98-107); CREATININE 0.8 MG/DL (0.55-1.30); POTASSIUM 3.5 MMOL/L (3.5-5.1); SODIUM 138 MMOL/L (136-145)
[2019-05-04 23:20] LABS: ALANINE AMINOTRANSFERASE 16 U/L (12-78); ALBUMIN 3.8 G/DL (3.4-5.0); ALBUMIN/GLOBULIN RATIO 0.8 (1.0-2.7); ALKALINE PHOSPHATASE 64 U/L (46-116); ASPARTATE AMINO TRANSFERASE 14 U/L (15-37); BILIRUBIN,TOTAL 0.3 MG/DL (0.2-1.0)
[2019-05-05] MEDS ORDERED: HYDROmorphone 1mg/ml Carpuject IVP ONE (00:15)
--- NOTE | 2019-05-05 00:53 | NUR ---
ED Nurse Note: patient states relief of pain 08/29. ambulates steady to bathroom.
[2019-05-05 00:59] VITALS: BP 138/91
--- NOTE | 2019-05-05 01:00 | NUR ---
ER DISCHARGE NOTE: Patient is cleared to be discharged per ERMD, pt is aox4, on room air, with stable vital signs. accompanied by family member. pt was given dc and prescription instructions, pt was able to verbalize understanding, pt id band and iv site removed without complications. pt is able to ambulate with steady gait. pt took all belongings.
== END 2019-05-05 01:00 | disposition home or self-care (01) ==
LOC: EMR 22:19
DX: R10.2 Pelvic and perineal pain (principal); D25.9 Leiomyoma of uterus, unspecified
CPT/HCPCS: 36415; 80053; 81003; 81025; 83690; 85025; 96361; 96374; 96375; 99284; J1170; J1885; J2270; J2405

== ENCOUNTER 2020-03-09 22:37 | Emergency (ER) | payer OTHER ==
[~2020-03-09] VITALS: Ht 167.6 cm; Wt 77.1 kg
[2020-03-09 23:08] VITALS: BP 151/86
--- NOTE | 2020-03-09 23:10 | NUR ---
ED Nurse Note: WALKED IN TO ED C/O LEFT SIDED LOWER ABD PAIN 10/10 RADIATING TO LOWER BACK. PT STATES HX FIBROID AND SUSPECTS FLARE UPS. STATES NAUSEA AND VOMITTING. ERMD AT BEDSIDE. VSS, NAD, AAOX4, AMBULATORY.
--- NOTE | 2020-03-09 23:12 | NUR ---
ED Nurse Note: BLOOD AND URINE COLLECTED AND SENT TO LAB
[2020-03-09] MEDS ORDERED: Morphine Sulfate 4mg/ml Inj (IV USE ONLY) IVP ONE (23:15)
[2020-03-09] MEDS ORDERED: Metoclopramide 10mg/2ml Inj IVP ONE (23:15)
[2020-03-09] MEDS ORDERED: DiphenhydrAMINE 50mg/ml Inj IVP ONE (23:15)
--- NOTE | 2020-03-09 23:17 | Emergency Room Report ---
History of Present Illness General Chief Complaint: Abdominal Pain Source: Patient Present Illness HPI Patient presents with 3 to 4 days of suprapubic pain. It is more on the left- hand side radiating towards her back. It severe at this time. She has no medication at home that she takes for pain. She believes this is caused by her fibroids. She denies any vaginal discharge, dysuria, vomiting although she does complain of nausea. She has got a mildly productive cough without fever. Last time this happened was 5 months ago. She is due for her menstruation to start. No fevers, chills, sore throat, chest pain, palpitations, diarrhea, shortness of breath, joint pain, rashes, depression, anxiety, visual changes, dizziness, headache. 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 Last Menstrual Period: 02/01/2020 Now: No : 0 Para: 0 Reviewed Nursing Documentation: PMH: Agreed; PSxH: Agreed Nursing Documentation-PMH Past Medical History: No History, Except For Hx Cardiac Problems: No - hypotyhyroid Hx Gastrointestinal Problems: Yes - fibroids Review of Systems All Other Systems: negative except mentioned in HPI Physical Exam Vital Signs Date Time Temp Pulse Resp B/P (MAP) Pulse Ox O2 Delivery O2 Flow Rate FiO2 03/09/20 22:37 98.2 104 18 144/90 (108) 98 Room Air 03/09/20 23:08 99 Sp02 EP Interpretation: reviewed, normal General Appearance: well appearing, GCS 15, mild distress - In pain Head: normocephalic Eyes: bilateral eye normal inspection, bilateral eye PERRL, bilateral eye EOMI ENT: moist mucus membranes Neck: supple Respiratory: normal inspection Cardiovascular #1: regular rate, rhythm Cardiovascular #2: 2+ radial (R) Gastrointestinal: normal inspection, normal bowel sounds, no mass, non- distended, no guarding, no rebound, tenderness - Left lower quadrant Genitourinary: no CVA tenderness, deferred - For ultrasound Musculoskeletal: normal range of motion, gait/station normal, other - Generalized lower back pain full range of motion Neurologic: alert, oriented x3, grossly normal Psychiatric: mood/affect normal Skin: warm/dry, other - Some bug bites in the lower extremities Medical Decision Making Diagnostic Impression: Primary Impression: Pelvic pain Additional Impression: Fibroid ER Course Patient presents with pelvic pain. Differential includes UTI, PID, ectopic , fibroid pain amongst others. Patient evaluated with labs and ultrasound. Patient treated with IV hydration, Reglan, Benadryl and morphine. Normal white count. Hemoglobin slightly low. CMP unremarkable. Urinalysis clear. Ultrasound with fibroids. Patient pain improved. Discussed findings with patient. Discussed treatment plan with patient. Patient stable for outpatient observation and treatment. Laboratory Tests Test 03/09/20 23:00 03/09/20 23:10 White Blood Count 10.0 K/UL (4.8-10.8) Red Blood Count 4.36 M/UL (4.20-5.40) Hemoglobin 12.5 G/DL (12.0-16.0) Hematocrit 39.5 % (37.0-47.0) Mean Corpuscular Volume 90 FL (80-99) Mean Corpuscular Hemoglobin 28.7 PG (27.0-31.0) Mean Corpuscular Hemoglobin Concent 31.8 G/DL (32.0-36.0) L Red Cell Distribution Width 12.8 % (11.6-14.8) Platelet Count 258 K/UL (150-450) Mean Platelet Volume 8.9 FL (6.5-10.1) Neutrophils (%) (Auto) 57.5 % (45.0-75.0) Lymphocytes (%) (Auto) 28.4 % (20.0-45.0) Monocytes (%) (Auto) 10.5 % (1.0-10.0) H Eosinophils (%) (Auto) 1.8 % (0.0-3.0) Basophils (%) (Auto) 1.9 % (0.0-2.0) Prothrombin Time 10.9 SEC (9.30-11.50) Prothrombin Time INR 1.0 (0.9-1.1) Sodium Level 135 MMOL/L (136-145) L Potassium Level 3.6 MMOL/L (3.5-5.1) Chloride Level 100 MMOL/L (98-107) Carbon Dioxide Level 26 MMOL/L (21-32) Anion Gap 9 mmol/L (5-15) Blood Urea Nitrogen 11 mg/dL (7-18) Creatinine 1.1 MG/DL (0.55-1.30) Estimated Glomerular Filtration Rate > 60 mL/min (>60) Glucose Level 98 MG/DL (74-106) Calcium Level 9.3 MG/DL (8.5-10.1) Total Bilirubin 0.4 MG/DL (0.2-1.0) Aspartate Amino Transferase (AST) 14 U/L (15-37) L Alanine Aminotransferase (ALT) 12 U/L (12-78) Alkaline Phosphatase 64 U/L (46-116) Total Protein 9.1 G/DL (6.4-8.2) H Albumin 4.0 G/DL (3.4-5.0) Globulin 5.1 g/dL Albumin/Globulin Ratio 0.8 (1.0-2.7) L Lipase 144 U/L (73-393) Urine Color Pale yellow Urine Appearance Clear Urine pH 5 (4.5-8.0) Urine Specific [place] 1.005 (1.005-1.035) Urine Protein Negative (NEGATIVE) Urine Glucose (UA) Negative (NEGATIVE) Urine Ketones Negative (NEGATIVE) Urine Blood 1+ (NEGATIVE) H Urine Nitrite Negative (NEGATIVE) Urine Bilirubin Negative (NEGATIVE) Urine Urobilinogen Normal MG/DL (0.0-1.0) Urine Leukocyte Esterase Negative (NEGATIVE) Urine RBC 2-4 /HPF (0 - 2) H Urine WBC 0-2 /HPF (0 - 2) Urine Squamous Epithelial Cells Few /LPF (NONE/OCC) Urine Bacteria Occasional /HPF (NONE) Urine HCG, Qualitative Negative (NEGATIVE) CT/MRI/US Diagnostic Results CT/MRI/US Diagnostic Results : Imaging Test Ordered: Transvaginal and trans-abdominal pelvic ultrasound Impression 1. No beta hCG available at the time of dictation, substantially limiting interpretation of the study. 2. If this patient is , this uterine appearance could represent normal early , early failure, or ectopic . 3. Left ovary not seen. 4. Fibroid uterus. 5. Otherwise unremarkable study. Last Vital Signs Date Time Temp Pulse Resp B/P (MAP) Pulse Ox O2 Delivery O2 Flow Rate FiO2 8/22/20 01:35 98.2 03/10/20 01:35 86 18 132/86 99 Room Air 99 Status: improved Disposition: HOME, SELF-CARE Condition: Improved Scripts Acetaminophen (Tylenol) 325 Mg Tablet 650 MG ORAL Q6H PRN for Prn Pain/Headache/Temp > 101, #20 TAB 0 Refills Prov: Jose Vasques MD 03/10/20 Tramadol Hcl* (ULTRAM*) 50 Mg Tablet 50 MG ORAL Q6H PRN for For Pain, #8 TAB 0 Refills Prov: Jose Vasques MD 03/10/20 Referrals: [facility],REFERRING (PCP) Jose Vasques MD Mar 09, 2020 23:17
--- NOTE | 2020-03-09 23:35 | NUR ---
ED Nurse Note: PT STATES PAIN IS UNCONTROLLED AT THIS TIME WITH 10/10 PAIN. ERMD MADE AWARE. WILL CARRY OUT ORDER
[2020-03-09 23:40] LABS: BASOPHILS % (AUTO) 1.9 % (0.0-2.0); EOSINOPHILS % (AUTO) 1.8 % (0.0-3.0); HEMATOCRIT 39.5 % (37.0-47.0); HEMOGLOBIN 12.5 G/DL (12.0-16.0); LYMPHOCYTES % (AUTO) 28.4 % (20.0-45.0); MEAN CORPUSCULAR VOLUME 90 FL (80-99); MONOCYTES % (AUTO) 10.5 % (1.0-10.0); NEUTROPHILS % (AUTO) 57.5 % (45.0-75.0); PLATELET COUNT 258 K/UL (150-450); RED BLOOD COUNT 4.36 M/UL (4.20-5.40); RED CELL DISTRIBUTION WIDTH 12.8 % (11.6-14.8)
[2020-03-09] MEDS ORDERED: HYDROmorphone 1mg/ml Carpuject IVP ONE (23:45)
--- NOTE | 2020-03-09 23:57 | NUR ---
ED Nurse Note: US AT BEDSIDE
[2020-03-10 00:14] LABS: APPEARANCE,URINE CLEAR; COLOR,URINE PALE YELLOW
[2020-03-10 00:15] LABS: GLUCOSE, URINE (UA) NEGATIVE (NEGATIVE); KETONES,URINE NEGATIVE (NEGATIVE); PH,URINE 5 (4.5-8.0); PROTEIN,URINE NEGATIVE (NEGATIVE)
[2020-03-10 00:16] LABS: BILIRUBIN, URINE NEGATIVE (NEGATIVE); LEUKOCYTE ESTERASE ,URINE NEGATIVE (NEGATIVE); NITRITE,URINE NEGATIVE (NEGATIVE); UROBILINOGEN,URINE NORMAL MG/DL (0.0-1.0)
[2020-03-10 00:31] LABS: ANION GAP 9 mmol/L (5-15); BLOOD UREA NITROGEN 11 mg/dL (7-18); CALCIUM 9.3 MG/DL (8.5-10.1); CARBON DIOXIDE 26 MMOL/L (21-32); CHLORIDE 100 MMOL/L (98-107); CREATININE 1.1 MG/DL (0.55-1.30); POTASSIUM 3.6 MMOL/L (3.5-5.1); SODIUM 135 MMOL/L (136-145)
[2020-03-10 00:36] LABS: ALANINE AMINOTRANSFERASE 12 U/L (12-78); ALBUMIN/GLOBULIN RATIO 0.8 (1.0-2.7); ALKALINE PHOSPHATASE 64 U/L (46-116); ASPARTATE AMINO TRANSFERASE 14 U/L (15-37); BILIRUBIN,TOTAL 0.4 MG/DL (0.2-1.0)
--- NOTE | 2020-03-10 00:42 | Diagnostic Imaging Report ---
EXAM: US Pelvis Transabdominal, Complete CLINICAL HISTORY: ABD PAIN TECHNIQUE: Real-time complete transabdominal pelvic ultrasound with image documentation. COMPARISON: No relevant prior studies available. FINDINGS: Limitations: No beta hCG available at the time of dictation, substantially limiting interpretation of the study. Uterus/cervix: Left uterine probable 2.7 cm fibroid. Uterus 7.3 x 5.7 x 3.9 cm Endometrium 0.9 cm Right ovary: Right ovary 2.5 cm Normal blood flow. Left ovary: Left ovary not seen. Free fluid: No free fluid. Bladder: Unremarkable as visualized. Wall is normal thickness for degree of distention. IMPRESSION: 1. No beta hCG available at the time of dictation, substantially limiting interpretation of the study. 2. If this patient is , this uterine appearance could represent normal early , early failure, or ectopic . 3. Left ovary not seen. 4. Fibroid uterus. 5. Otherwise unremarkable study.
--- NOTE | 2020-03-10 00:44 | Diagnostic Imaging Report ---
EXAM: US Pelvis Transvaginal CLINICAL HISTORY: PAIN TECHNIQUE: Real-time transvaginal pelvic ultrasound with image documentation. Transvaginal imaging was used for better evaluation of the endometrium and adnexa. COMPARISON: No relevant prior studies available. FINDINGS: Limitations: No beta hCG available at the time of dictation, substantially limiting interpretation of the study. Uterus/cervix: Left uterine probable 2.7 cm fibroid. Uterus 7.3 x 5.7 x 3.9 cm Endometrium 0.9 cm Right ovary: Right ovary 2.5 cm Normal blood flow. Left ovary: Left ovary not seen. Free fluid: No free fluid. Bladder: Empty bladder which cannot be evaluated with this probe. IMPRESSION: 1. No beta hCG available at the time of dictation, substantially limiting interpretation of the study. 2. If this patient is , this uterine appearance could represent normal early , early failure, or ectopic . 3. Left ovary not seen. 4. Fibroid uterus. 5. Otherwise unremarkable study.
[2020-03-10] MEDS ORDERED: oxyCODONE HCL/Acetaminophen 5/325mg ORAL ONE (01:15)
[2020-03-10] MEDS ORDERED: TRAMADOL HCL50 MG ORAL (01:17)
[2020-03-10] MEDS ORDERED: TYLENOL325 MG ORAL (01:17)
[2020-03-10 01:26] VITALS: BP_SYST 132
[2020-03-10 01:35] VITALS: BP 132/86
--- NOTE | 2020-03-10 01:35 | NUR ---
ER DISCHARGE NOTE: Patient is cleared to be discharged per ERMD, pt is aox4, on room air, with stable vital signs. pt was given dc and prescription instructions, pt was able to verbalize understanding, pt id band and iv site removed without complications. pt is able to ambulate with steady gait. pt took all belongings.
== END 2020-03-10 01:35 | disposition home or self-care (01) ==
LOC: EMR 23:05
DX: R10.2 Pelvic and perineal pain (principal); D25.9 Leiomyoma of uterus, unspecified; E03.9 Hypothyroidism, unspecified; S80.862A Insect bite (nonvenomous), left lower leg, initial encounter; S80.861A Insect bite (nonvenomous), right lower leg, initial encounter; W57.XXXA Bitten or stung by nonvenomous insect and other nonvenomous arthropods, initial encounter; Y92.9 Unspecified place or not applicable
CPT/HCPCS: 36415; 76830; 76856; 80053; 81003; 81025; 83690; 85025; 85610; 96361; 96374; 96375; 99284; J1170; J1200; J2270; J2765; J7030

== ENCOUNTER 2020-09-09 15:46 | Emergency (ER) | payer OTHER ==
[~2020-09-09] VITALS: Ht 157.5 cm; Wt 77.1 kg
[~2020-09-09 15:46] MED LIST changes: +TYLENOL325 MG ORAL
[2020-09-09 15:59] VITALS: BP 131/86
--- NOTE | 2020-09-09 16:25 | Emergency Room Report ---
History of Present Illness General Chief Complaint: Abdominal Pain Source: Patient Present Illness HPI 40-year-old female with fibroids presents to the emergency department with fibroid pain x2 days. Also reports dysuria. Denies vaginal bleeding, history of nephrolithiasis, hematuria, fever, flank pain, back pain, chest pain, shortness of breath, rash, syncope, lightheadedness, headache nausea, vomiting, diarrhea or any other symptoms. She states that this is her normal fibroid pain and denies any deviation from baseline, however she states she wants medication stronger than Motrin which he already took at home and moderately alleviated her symptoms. She has had previous work-up at [facility] with her primary care doctor and was told to get follow-up with [facility], however states "I did not take it seriously so I never followed up". She denies any abdominal trauma, melena, hematochezia, decreased appetite or constipation. The patient's symptoms were gradual onset, severity was moderate, duration since 2 days. Quality: She describes the pelvic pain as "cramping" Past medical history: Fibroids Past surgical history: Denies Smoking: Denies Alcohol use: Denies Drug use: Denies Review of systems: CONST: No fevers or chills, No night sweats PULMONARY: No productive cough, No shortness of breath CARDIAC: No chest pain, No palpitations GI: No vomiting, No diarrhea , No melena_or_BRBPR : ++ dysuria, No hematuria, No discharge NEURO: No new_focal_weakness_or_numbness, No confusion, No vision changes 14 point Review of Systems is otherwise negative except per HPI Physical Exam: GENERAL: Awake_alert_ nontoxic, no acute distress Spo2 98% on RA -normal EYES: Extraocular muscles are intact. Conjunctivae clear. Lids without swelling ENT: External nose and ear normal_in_appearance. Oropharynx clear. Head_atraumatic, Moist_oral_mucosa NECK: No JVD. No meningismus. No thyromegaly. Supple. Trachea midline RESP: Normal respiratory effort. Symmetric rise. No stridor. Clear_to_auscultation_No_rales_No_wheezes CARDIAC: Regular rate and regular rhytm. No_significant pedal edema. ABDOMEN: Soft. Nondistended. Nontender_No_rebound_or_guarding. Negative Clarke sign. Negative Rovsing's. No CVA tenderness to palpation. Palpable pelvic fibroid. MSK: Normal muscle tone, without rigidity. Extremities without asymmetric deformity or swelling. SKIN: Warm and dry. No visible cyanosis or pallor. No petechiae. NEUROLOGIC: Alert, oriented x3. Motor_and_sensation_grossly_intact. No truncal ataxia. Gait_normal Psych: Normal mood and affect, normal judgment and insight - COORDINATION OF CARE Case was discussed with: Patient Any labs that were ordered were interpreted as part of the medical decision making: Medical Decision Making/Plan: Differential diagnosis includes fibroid pain, UTI, cystitis, dysfunctional uterine bleeding, vaginal / uterine mass, among others. Doubt ectopic , hemorrhagic ovarian cyst, threatened , fibroids, severe anemia I reviewed previous chart from February 2020. Patient underwent CT and pelvic ultrasound at that time that demonstrated fibroid uterus (2.7 cm in size). She was told to follow-up with her [facility] doctor for referral to [facility], however has not gotten around to it. Today, vital signs are unremarkable. Patient is afebrile. She is noted to have tenderness to palpation over her mid pelvis, correlating with the location of her fibroid. Otherwise, abdominal examination is nontender and nonperitoneal. There is no CVA tenderness to palpation. There is no indication for repeat CT/pelvic ultrasound since she has stable follow-up with her [facility] PMD who she states she can email tonight for referral in the morning. Urinalysis shows no evidence of urinary tract infection. U preg is negative. ED intervention included Toradol and Lydia with relief of symptoms. test is NEGATIVE ruling out ectopic , or threatened / inevitable . The patients presentation is not consistent with hemorrhagic ovarian cyst, and has no significant tenderness on exam. Patients presentation is not consistent with symptoms of severe anemia (near syncope, lightheadedness, severe fatigue). The patient appears stable for discharge home and follow with PMD in 2-3 days for reevaluation and further treatment. Allergies: Coded Allergies: No Known Allergies (Unverified , 12/31/16) COVID-19 Screening Contact w/high risk pt: No Experienced COVID-19 symptoms?: No COVID-19 Testing performed [employer]: No Patient History Last Menstrual Period: 08/11/20 Now: No Nursing Documentation-PMH Hx Cardiac Problems: No - hypotyhyroid Hx Gastrointestinal Problems: Yes - fibroids Physical Exam Vital Signs Date Time Temp Pulse Resp B/P (MAP) Pulse Ox O2 Delivery O2 Flow Rate FiO2 09/09/20 15:59 98.4 92 18 131/86 (101) 98 Room Air Sp02 EP Interpretation: reviewed, normal Medical Decision Making Diagnostic Impression: Primary Impression: Abdominal pain Additional Impression: Fibroid Last Vital Signs Date Time Temp Pulse Resp B/P (MAP) Pulse Ox O2 Delivery O2 Flow Rate FiO2 09/09/20 15:59 98.4 92 18 131/86 (101) 98 Room Air Disposition: HOME, SELF-CARE Admit Decision Time: 16:25 Condition: Stable Scripts Acetaminophen With Codeine (T#3) (TYLENOL #3 TAB*) Y Tab 1 TAB ORAL Q8H PRN for For Pain, #20 TAB Prov: Norma Arias D.O. 09/09/20 Naproxen Sodium (Naproxen Cr) 500 Mg Tbmp.24hr 500 MG PO BID for 10 Days, #20 TAB Prov: Norma Arias D.O. 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 Follow-up with your doctor sooner if your condition requires a more timely clinical reevaluation. Return to the emergency department immediately if you feel that your condition is worsening or if you have any new or concerning symptoms. Review your discharge instructions and take any prescriptions given as instructed. [facility] PROVIDES FREE OR LOW-COST HEALTH SERVICES TO PEOPLE WHO CAN SHOW PROOF THAT THEY LIVE IN [place]. TO FIND MORE CLINICS PARTNERED WITH [facility] TO PROVIDE SERVICE, PLEASE CALL . Norma Arias D.O. Sep 09, 2020 16:25
--- NOTE | 2020-09-09 16:28 | NUR ---
Patient presents to the ER with fibroid pain and dysuria x 2 days. Motrin has not been allieviating her symptoms at home so she she came in to be evaluated.
[2020-09-09 16:44] LABS: APPEARANCE,URINE CLEAR; BILIRUBIN, URINE NEGATIVE (NEGATIVE); COLOR,URINE PALE YELLOW; GLUCOSE, URINE (UA) NEGATIVE (NEGATIVE); KETONES,URINE NEGATIVE (NEGATIVE); LEUKOCYTE ESTERASE ,URINE NEGATIVE (NEGATIVE); NITRITE,URINE NEGATIVE (NEGATIVE); PH,URINE 6.5 (4.5-8.0); PROTEIN,URINE NEGATIVE (NEGATIVE); UROBILINOGEN,URINE NORMAL MG/DL (0.0-1.0)
[2020-09-09] MEDS ORDERED: Tylenol #3 tab (300mg/30mg) ORAL ONE (17:15)
[2020-09-09] MEDS ORDERED: Ketorolac 30mg Inj IM ONE (17:15)
[2020-09-09] MEDS ORDERED: ACETAMINOPHEN-1 EAC1 ORAL (17:20)
[2020-09-09] MEDS ORDERED: NAPROXEN CR500 MG PO (17:20)
== END 2020-09-09 17:25 | disposition home or self-care (01) ==
LOC: EMR 16:08
DX: D25.9 Leiomyoma of uterus, unspecified (principal); R10.9 Unspecified abdominal pain; E03.9 Hypothyroidism, unspecified
CPT/HCPCS: 81003; 81025; 96372; 99283; J1885